=== PATIENT | male | born 1970 | race African-American/Black ===

== ENCOUNTER → 2025-07-05 | Day surgery (SDC) | payer OTHER ==
[~2025-07-05] MED LIST: Propofol 200 MG/20 ML SDV ONE; fentaNYL 100 MCG/2 ML SDV ONE
[2025-07-05] MEDS: Lactated Ringers 1,000 ML IV SCH (09:47)
== END ==
LOC: VM.SDS 09:35
PROVIDERS: ATTEND Family Medicine
DX: Z12.11 Encounter for screening for malignant neoplasm of colon (principal); K51.40 Inflammatory polyps of colon without complications; K63.5 Polyp of colon; D50.0 Iron deficiency anemia secondary to blood loss (chronic); K64.9 Unspecified hemorrhoids; I10 Essential (primary) hypertension; Z79.899 Other long term (current) drug therapy
CPT/HCPCS: 00813; J2704; J3010; J7120